=== PATIENT | female | born 2005 | race Caucasian/White ===

== ENCOUNTER 2023-10-12 19:44 | Emergency (ER) | payer BC, SELFPAY ==
--- NOTE | ~2023-10-12 | CT_ITS ---
EXAMINATION: CT abdomen pelvis w con DATE: 10/12/2023 22:15 INDICATION: n/v/d, RUQ pain TECHNIQUE: Computed tomography (CT) of the abdomen and pelvis was performed with 100 mL Omnipaque-350 intravenous contrast. Automated exposure control and iterative reconstruction technique were employe d. The dose-length product was 200.50 mGy-cm. COMPARISON: None. FINDINGS: Lower thorax: Unremarkable Liver: Normal. Biliary/Gallbladder: Gallbladder is normal. No bile duct dilation. Pancreas: No mass or duct dilation. Spleen: Normal. Adrenals:No mass. Kidneys: No suspicious mass, obstructing stone, or hydronephrosis. GI tract: No small or large bowel dilation. Appendix not confidently visualized. No right lower quadr ant inflammatory process detected. Mesentery/Peritoneum: No ascites, mass, or free air. Retroperitoneum: No mass. Pelvis: Pelvic organs are within normal limits. Soft Tissues: Soft tissues and body wall unremarkable. Bones: No acute osseous finding. IMPRESSION: No acute abdominopelvic process detected. Reviewed, dictated and finalized at location [facility] [employer]
[2023-10-12 19:55] VITALS: BP 114/65; PULSE 127; RESP 16; TEMP 36.7; O2SAT 98
[2023-10-12 20:17] LABS: Hematocrit 47.1 % (37.0-47.0); Hemoglobin 16.1 g/dL (12.0-15.0); Mean Corpuscular HGB Conc 34.2 g/dl (32-36); Mean Corpuscular Hemoglobin 29.6 pg (26-34); Mean Corpuscular Volume 86.6 fl (80-100); Mean Platelet Volume 10.2 fl (7.4-10.4); Platelet Count Result 224 k/mm3 (150-375); Red Blood Count 5.44 M/mm3 (4.2-5.4); Red Cell Distribution Width 12.4 % (11.5-14.5); White Blood Count 15.2 K/mm3 (4.5-10.0)
[2023-10-12 20:23] LABS: Appearance Urine Clear (Clear); Bacteria Urine None Seen /hpf; Bilirubin Urine Negative (Negative); Blood Urine Negative (Negative); Color Urine Dark Yellow (Yellow); Glucose Urine UA Negative (Negative); Ketones Urine 4+ mg/dL (Negative); Leukocyte Esterase Ur Negative LEU/UL (Negative); Nitrate Urine Negative (Negative); Protein Urine 1+ mg/dL (Negative); Specific Grav Ur 1.033 (1.001-1.035); Squamous Epithelial Cell Urine Occasional /hpf (Few); WBC Urine 0-5 /hpf; pH Urine 5.5 (5.0-9.0)
[2023-10-12 20:27] LABS: Alanine Aminotransferase 17 U/L (6-35); Alkaline Phosphatase 54 U/L (45-116); Anion Gap 15 mmol/L (8-16); Aspartate Amino Transferase 26 U/L (14-36); Bilirubin,Total 1.7 mg/dL (0.2-1.3); Blood Urea Nitrogen 14 mg/dL (8-21); Carbon Dioxide 16 mmol/L (22-30); Chloride 107 mmol/L (98-107); Estimated CRCL calculation 83 ml/min; Estimated Glomerular Filt Rate > 60; Glucose 152 mg/dL (65-110); Lipase 119 U/L (23-300); Potassium 4.3 mmol/L (3.4-5.0); Sodium 138 mmol/L (134-143)
[2023-10-12 20:50] LABS: Add Urine Microscopic? YES
[2023-10-12 21:19] LABS: Band Neutrophils Percent 5 % (0-6); Lymphocytes Absolute Manual 0.45 K/mm3 (1.1-4.5); Monocytes Absolute Manual 0.76 K/mm3 (0.1-0.90); Monocytes Percent Manual 5 % (3-9); Neutrophils Absolute Manual 13.98 K/mm3 (1.7-7.2); Neutrophils Percent Manual 87 % (46-73); Platelet Estimate Adequate (Adequate); Schistocytes None Seen (NORMAL); Total Cells Counted 100
--- NOTE | 2023-10-12 21:28 | ECG_ITS ---
Measurements Intervals [place] Rate: 104 P: IN: 0 QRS: 87 QRSD: 82 T: 1 QT: 310 QTc: 408 Interpretive Statements SINUS TACHYCARDIA WITH SINUS ARRHYTHMIA NONSPECIFIC ST AND T ABNORMALITY ABNORMAL RHYTHM ECG NO PREVIOUS ECG AVAILABLE FOR COMPARISON Electronically Signed On 10-13-2023 8:06:36 [employer] by Jake Singh M.D.
--- NOTE | 2023-10-12 21:29 | ED.NAVMDI ---
HPI - Nausea/Vomiting/Diarrhea General Chief complaint: Nausea/Vomiting/Diarrhea Stated complaint: n/v/d Time Seen by Provider: 10/12/23 21:20 History of Present Illness HPI Narrative: 17-year-old female presents to the emergency department for evaluation for nausea, vomiting and diarrhea that started at 2:30 p.m. today. Patient states she had [employer] prior to the onset of symptoms. She is reporting generalized abdominal discomfort, 14 episodes of emesis and multiple episodes of watery diarrhea since the onset of symptoms. States she has developed dizziness which she is attributing to dehydration. She denies fever, chest pain shortness of breath, cough or congestion, dysuria or hematuria. Denies recent surgeries or hospitalizations, recent antibiotic use or travel. Denies history of abdominal surgeries. LMP approximately 3-4 weeks ago. Related Data Allergies Allergy/AdvReac Type Severity Reaction Status Date / Time No Known Allergies Allergy Verified 10/12/23 19:45 Review of Systems Review of Systems: CONSTITUTIONAL: Denies fever, chills, or sweats. EYES: Denies visual changes, redness, or discharge. ENT: Denies rhinorrhea, congestion, sore throat, or otalgia. CARDIOVASCULAR: Denies chest pain, palpitations, or edema. RESPIRATORY: Denies cough or dyspnea. GASTROINTESTINAL: See HPI GENITOURINARY: Denies dysuria or hematuria. SKIN: Denies rash or itching. MUSCULOSKELETAL: Denies back pain, joint pain, or myalgia. NEUROLOGIC: Denies headache, numbness, or weakness. PSYCHIATRIC: Denies anxiety or depression. Exam Narrative: GENERAL: Well-appearing, well-nourished, and in no acute distress. Patient resting comfortably in exam bed. She is pleasant and conversational. HEAD: Normocephalic, atraumatic. EYES: PERRLA and EOMI. ENT: Nares clear, no rhinorrhea or epistaxis. Mucous membranes dry NECK: Supple. CHEST: Clear to auscultation. No respiratory distress. HEART: Regular rate and rhythm. No murmur heard. Normal peripheral pulses. ABDOMEN: Quiet bowel sounds. Generalized abdominal tenderness. Negative Dupont's. Negative McBurney's. No rebound, guarding or rigidity. EXTREMITIES: Normal range of motion. No edema. SKIN: Warm, dry, no rash. NEURO: No focal deficits. Alert and oriented x3 Course Vital Signs Vital signs: Vital Signs Temperature 98.0 F 10/12/23 19:55 Pulse Rate 127 H 10/12/23 19:55 Respiratory Rate 16 10/12/23 19:55 Blood Pressure 114/65 10/12/23 19:55 Pulse Oximetry 98 10/12/23 19:55 Oxygen Delivery Room Air 10/12/23 19:55 Temperature 98.0 F 10/12/23 19:55 Pulse Rate 135 H 10/13/23 00:11 Respiratory Rate 16 10/12/23 21:36 Blood Pressure 104/70 10/13/23 00:11 Pulse Oximetry 100 10/12/23 21:36 Oxygen Delivery Room Air 10/12/23 19:55 MDM - Nausea/Vomiting/Diarrhea MDM Narrative Medical decision making narrative: 17-year-old female presents to emergency department for generalized abdominal discomfort, nausea vomiting and diarrhea that started today. See HPI for further history. Triage vital significant for tachycardia 127, otherwise unremarkable. She is afebrile. Nontoxic on exam but does appear dry. Exam significant for the above. EKG shows sinus arrhythmia, diffuse ST depressions likely secondary to rate, no ST elevations. Denies chest pain. CBC significant for leukocytosis of 15.2 and hemoconcentration. Elevated neutrophils of 87%. Chemistries show bicarb is 16 with a normal anion gap, likely secondary to dehydration. Her bilirubin is 1.7, remainder of LFTs are unremarkable. Negative Dupont's on exam. Lipase is normal at 119. UA with 4+ ketones and 3-5 rbc's, otherwise unremarkable. No UTI. COVID and flu were negative. Lactic acid mildly elevated 2.8. C diff and stool cultures ordered, however patient unable to provide sample. CT abdomen pelvis shows fluid and several loops of small bowel which is nonspecific however can be seen
[2023-10-12 21:31] VITALS: BP 107/71; PULSE 114
[2023-10-12 21:36] VITALS: BP 128/79; PULSE 127; RESP 16; O2SAT 100
[2023-10-12 21:39] VITALS: BP 107/78; PULSE 136
[2023-10-12 21:40] VITALS: BP 96/65; PULSE 162
[2023-10-12] MEDS: ONDANSETRON INJ 4 MG/2 ML VIAL IV PUSH (21:50)
[2023-10-12] MEDS: LACTATED RINGERS 1,000 ML 999 ML IV CONT ×2 (21:50)
[2023-10-12] MEDS: FAMOTIDINE 20 MG/2 ML VIAL IV PUSH (21:51)
[2023-10-12 22:54] LABS: Lactic Acid Reflex 2.8 mmol/L (0.7-2.0)
[2023-10-12 23:14] LABS: Influenza A QL RT-PCR Negative (Negative); Influenza B QL RT-PCR Negative (Negative); SARS-CoV-2 RNA PCR Negative (Negative)
[2023-10-13 00:09] VITALS: BP 105/61; PULSE 91
[2023-10-13 00:10] VITALS: BP 107/64; PULSE 110
[2023-10-13 00:11] VITALS: BP 104/70; PULSE 135
[2023-10-13] MEDS: SODIUM CHLORIDE 0.9% IV 1,000 ML 999 ML IV CONT (00:57)
[2023-10-13 01:35] LABS: Reflex Lactic Acid Yes or No Add Lactic
[2023-10-13 01:58] VITALS: BP 104/65; PULSE 96; RESP 18; O2SAT 99
== END 2023-10-13 01:59 | disposition home or self-care (01) ==
PROVIDERS: Student in an Organized Health Care Education/Training Program; Emergency Provider Physician Assistant
DX: K52.9 Noninfective gastroenteritis and colitis, unspecified (principal); E86.0 Dehydration; R00.0 Tachycardia, unspecified; Z20.822 Contact with and (suspected) exposure to COVID-19
CPT/HCPCS: 36415; 74177; 80053; 81001; 81025; 83605; 83690; 85025; 87636; 93005; 96361; 96374; 96375; 99284; J2405; J7030; J7120; Q9967